=== PATIENT | male | born 1985 | race Caucasian/White ===

== ENCOUNTER → 2023-02-11 | Outpatient (CLI) | payer OTHER | END | disposition home or self-care (01) | LOC: RAH 15:09 | PROVIDERS: ATTEND Internal Medicine | DX: M19.072 Primary osteoarthritis, left ankle and foot (principal); M77.32 Calcaneal spur, left foot; M16.12 Unilateral primary osteoarthritis, left hip; M25.572 Pain in left ankle and joints of left foot; M54.50 Low back pain, unspecified; M25.552 Pain in left hip; M79.89 Other specified soft tissue disorders; Z98.890 Other specified postprocedural states | CPT/HCPCS: 72100; 73502; 73600 ==